=== PATIENT | female | born 1965 ===

== ENCOUNTER 2016-11-19 12:07 | Observation (INO) | payer MEDICARE ==
[2016-11-19] VITALS (7 sets, daily range): BP systolic 118–161; BP diastolic 63–91; PULSE 71–84; RESP 17–20; O2SAT 94–99
[~2016-11-19] VITALS: Ht 162.6 cm; Wt 136.2 kg
[~2016-11-19 12:07] MED LIST: LRZ.5T1 PO; PARO30TA75 PO
--- NOTE | 2016-11-19 12:21 | ED.REPORT ---
HPI-Chest Pain 40 and Over Date of Service Nov 19, 2016 ED Provider: Dr. Burk Pt is a 40 year old female with a hx of anxiety, osteoarthritis, fibromyalgia, presenting to the ED via EMS from complaining of chest pressure and palpitations onset intermittently 1 week ago. Associated symptoms include SOB and chronic sinus issues. Denies nausea or abdominal pain. She describes the sensation as a fluttering, radiating into her throat, usually lasting for around 30-60 minutes. Pt reports that the symptoms were resolved when she took Lorazepam at home. EKG from from 1103 am shows T wave inversion V1-V4 prominently. Nursing Notes Stated Complaint: CHEST PAIN Chief Complaint: Chest Pain Nursing Notes Reviewed: Yes Allergies: Coded Allergies: Gluten Flour (Verified Adverse Reaction, Severe, HEARTBURN, 11/19/16) Wheat Flour (Verified Adverse Reaction, Severe, HEARTBURN, 11/19/16) garlic (Verified Adverse Reaction, Severe, HEARTBURN, 11/19/16) Uncoded Allergies: CASINE (Adverse Reaction, Severe, HEARTBURN, 06/14/10) Scheduled Lorazepam-Expunged Drug, Do Not Renew! (Lorazepam-Expunged Drug, Do Not Renew!) 0.5 Mg Tab 0.5 MG PO PRN BID as needed Paroxetine-Expunged Drug, Do Not Renew! (Paxil-Expunged Drug, Do Not Renew!) 30 Mg Tablet 30 MG PO HS General Time Seen by MD: 12:21 Chief Complaint Chest pain Hx Obtained From: Patient Arrived By: Ambulance Sudden in Onset?: No Onset Occurred: 1 week ago Symptom Duration: Intermittent Quality: Painful, Pressure Severity: Current: Mild Severity: Maximum: Mild Recent Healthcare: No recent hospitalization, Recent doctor visit Similar Sx Previous: No Past Medical History Past Medical History Reported: pituitary brain aneurysm being monitored, anxiety, GERD, osteoarthritis, fibromyalgia Past Surgical History denies Smoking History Unknown if Ever Smoker Ambulatory Status Independent Review of Systems Respiratory: Reports: Shortness of breath Cardiovascular: Reports: Chest pain, Palpitations GI: Denies: Abdominal pain, Nausea Complete sys rev & neg: except as marked. Physical Exam Initial Vital Signs Vital Signs (First) Date Time Temp Pulse Resp B/P Pulse Ox O2 Delivery O2 Flow Rate FiO2 11/19/16 12:10 36.2 82 20 161/91 99 Nasal Cannula 2 Initial VS: Reviewed Head / Eyes: Atraumatic, Normocephalic, PERRL ENT: Mucous membranes moist, Conjunctiva normal, No scleral icterus Skin: Warm, Dry, No cyanosis Neurologic: Alert, Oriented, Nonfocal Psychiatric: Mood/affect normal, Behavior normal, Normal thought content General/Constitutional: Awake, Alert, No acute distress, Well appearing Appearance / Presentation: Positive: Obese Respiratory / Chest: Breath sounds NL, Breath sounds = bilat, No respiratory distress, No rales, No rhonchi, No wheezing, No stridor, No chest tenderness Cardiovascular: Heart rate NL, Regular rhythm, Heart sounds NL, No murmurs, Peripheral circulation NL, Pulses = bilaterally, No gross BP differential Abdomen: Soft, Non-tender, No guarding, No rebound, BS normoactive, No distention Neck: No JVD Lower Extremity / Pelvis / MS: Neurologic intact, Vascular intact, No edema Interpretation & Diagnostics Lab Results Interpretation Result Diagram: 11/19/16 1230 11/19/16 1230 Test 11/19/16 12:00 11/19/16 12:30 11/19/16 13:00 11/19/16 14:15 White Blood Count 9.9th/mm3 (3.8-10.1) Red Blood Count 4.95mil/mm3 (3.90-5.20) Hemoglobin 14.0g/dL (12.0-15.6) Hematocrit 43.9% (35.0-46.0) Mean Corpuscular Volume 88.7fL (81-100) Mean Corpuscular Hemoglobin 28.3pg (27.0-35.0) Mean Corpuscular Hemoglobin Concent 31.9% (32.0-37.0) Red Cell Distribution Width 14.0% (12.3-15.4) Platelet Count 236bil/L (150-400) Neutrophils (%) (Auto) 73.1% (40-74) Lymphocytes (%) (Auto) 19.2% (14-46) Monocytes (%) (Auto) 6.4% (4-12) Eosinophils (%) (Auto) 0.8% (0-5) Basophils (%) (Auto) 0.2% (0-3) Sodium Level 141mEq/L (134-144) Potassium Level 3.6mEq/L (3.5-5.2) Chloride Level 103mEq/L (97-108) Carbon Dioxide Level 24mmol/L (18-29) Blood Urea Nitrogen 15mg/dL (6-24) Creatinine 0.54mg/dL (0.57-1.00) Estimat Glomerular Filtration Rate 170mL/min (>59) Glucose Level 111mg/dL (60-99) Calcium Level 9.7mg/dL (8.5-10.1) Total Bilirubin 0.3mg/dL (0.0-1.2) Aspartate Amino Transf (AST/SGOT) 19U/L (0-50) Alanine Aminotransferase (ALT/SGPT) 17U/L (0-32) Alkaline Phosphatase 83U/L (25-150) Total Creatine Kinase 117U/L (21-215) Creatine Kinase MB 2.9ng/mL (0.0-5.3) Creatine Kinase MB % % (0.0-5.0) Pro-B-Type Natriuretic Peptide 90.29pg/mL (0-249) Total Protein 8.2g/dL (6.4-8.4) Albumin 4.2g/dL (3.4-5.0) Activated Partial Thromboplast Time 31.8sec (22.8-33.0) ECG Interpretation ECG Interpretation: No acute ST changes. Time: 13:35 Interpreted by: ED physician Normal ECG Interpretation: Normal rate (74), Normal sinus rhythm X-Ray Chest Interpretation Chest Xray Interpretation: IMPRESSION: No acute process. Dictated by: Selena Le M.D. on 11/19/2016 at 13:28 View: AP & lat Interpretation / Wet Read by: Interpret - Radiologist Re-Eval/Medical Decision Med Decision/Clinical Course Patient has dynamic anterior EKG changes associated with her chest symptoms, concerning for unstable angina. She will be heparinized while in the ER. Cardiology is consulted while in the ER. Patient will be admitted. Time of Eval: 13:42 Patient Status: Condition improved Re-Evaluation/Progress Note: Discussed plan for admission. Pt understands and agrees. Consultation #1: Referral / Consult Name: Tommie Kerr MD Consulted With: Hospitalist Call Returned at: 13:57 Affiliate Marketing Coordinator: Will see patient, Agrees with plan, Accepts admit Consultation #2: Referral / Consult Name: Cecelia Be MD Consulted With: Cardiology Call Returned at: 14:02 Counseled Regarding: Diagnosis, Lab results, Need for follow-up, When/why to return to ED Discharge & Departure Primary Impression: Unstable angina Disposition: ADMITTED TO HOSPITAL Discharge Condition All VS Reviewed: Yes Condition: Improved Referrals: Gretchen Lemon MD (PCP) Crit Care Except Billable Proc Time Spent: 30-74 minutes Services Performed: Patient management by me, Time spent at bedside, Reviewing test results Critical Care Notes: See MDM Scribe Attestation Portions of this note were transcribed by Meenu Naylor. I, Dr. Burk personally performed the history, physical exam and medical decision-making; I reviewed and confirmed the accuracy of the information in the transcribed note. Signed by: Hu Gomez, 11/19/2016 at 1414. copies to: Gretchen Lemon MD, Timothy S DO Nov 19, 2016 12:21 MEENU NAYLOR Nov 19, 2016 12:33
[2016-11-19] MEDS ORDERED: LidocaineVisc 2%:Antacid 1:1 10 mL Syringe PO ONE (12:35)
[2016-11-19 12:48] LABS: BASOPHILS % (AUTO) 0.2 % (0-3); EOSINOPHILS % (AUTO) 0.8 % (0-5); MONOCYTES % (AUTO) 6.4 % (4-12); Mean Corpuscular Hemoglobin 28.3 pg (27.0-35.0); Mean Corpuscular Volume 88.7 fL (81-100); NEUTROPHILS % (AUTO) 73.1 % (40-74); Platelet Count 236 bil/L (150-400)
[2016-11-19 13:23] LABS: Creatine Kinase 117 U/L (21-215); Magnesium 2.3 mg/dL (1.6-2.6)
[2016-11-19 13:28] LABS: TROPONIN T < 0.010 ug/L (0.0-0.011)
--- NOTE | 2016-11-19 13:30 | DRSVH ---
PROCEDURE: X-RAY CHEST, TWO VIEWS ([id number]) INDICATIONS: palpitations TECHNIQUE: 2 views of the chest were acquired. COMPARISON: [facility], , CHEST 2VW, 01/11/2012, 12:48. FINDINGS: Surgical changes and devices: None. Lungs and pleura: No pleural effusions or pneumothorax. Lungs are clear. Mediastinum: Mediastinal contours are normal. Heart size is normal. Bones and chest wall: No suspicious bony abnormalities. Soft tissues appear unremarkable. IMPRESSION: No acute process. Dictated by: Selena Le M.D. on 11/19/2016 at 13:28 Approved by: Selena Le M.D. on 11/19/2016 at 13:28
[2016-11-19] MEDS ORDERED: Heparin 25K Unit/500mL 0.45 NS 25,000 UNIT in IV Premix 1 EACH IV ONE (13:40)
[2016-11-19] MEDS ORDERED: Heparin 5,000 Unit/mL Inj IVPUSH ONE (13:40)
[2016-11-19] MEDS ORDERED: Alum-Mag Hydrox-Simeth 30 mL Suspension PO PRN (14:00)
[2016-11-19] MEDS: 0.9% Sodium Chloride 1,000 ML IV SCH ×2 (14:00→20:34)
[2016-11-19] MEDS ORDERED: Senna-Docusate 8.6-50 mg Tablet PO PRN (14:00)
[2016-11-19] MEDS ORDERED: Polyethylene Glycol (PEG) 17 Gm Powder PO PRN (14:00)
[2016-11-19] MEDS ORDERED: Ondansetron 2 mg/mL 2 mL Inj IVPUSH PRN (14:00)
--- NOTE | 2016-11-19 14:44 | PCM.HPMED ---
Subjective Date of Service Nov 19, 2016 Primary Provider: Admitting Physician: Tommie Kerr MD Primary Care Physician: Gretchen Lemon MD Attending Physician: Tommie Kerr MD Chief Complaint: Chest flutter History of Present Illness: Guera Cai is 51 year old obese woman with past medical history significant for panic disorder, osteoarthritis, fibromyalgia and JORGE who presented to the [facility] ED via EMS from due to "fluttering" in her chest for the last week. The patient noted this would happen intermittently for about 30 minutes at a time and she associated with GERD. This was not associated with exertion. She denies any chest pressure, chest pain, arm numbness, tingling, sharp pains to her neck or back. She denies any diaphoresis, nausea, vomiting, diarrhea or abdominal pain. She denies and shortness of breath or cough. The patient believed this to be a panic attack and took one dose of Ativan with relief. Her family was however with her and talked her to coming to urgent care to seek further care. At urgent care an EKG was performed and the patient was noted to have T wave inversion in V1-V4. On repeat EKG done at the ED no T wave inversions were noted. The patient is currently pain free. She was a former smoker and does currently work in a smoking environment. In the ED her vitals were stable. Dr. Be of cardiology was consulted and agreed to see the patient. The patient was given a full dose of aspirin and started on a heparin drip. Review of Systems: A comprehensive review of systems was conducted with the patient and found to be negative except as above in the History of Present Illness. Allergies Coded Allergies: Gluten Flour (Verified Adverse Reaction, Severe, HEARTBURN, 11/19/16) Wheat Flour (Verified Adverse Reaction, Severe, HEARTBURN, 11/19/16) garlic (Verified Adverse Reaction, Severe, HEARTBURN, 11/19/16) Uncoded Allergies: CASINE (Adverse Reaction, Severe, HEARTBURN, 06/14/10) Home Medications Lorazepam 0.5 Mg Tab 0.5 MG PO PRN BID as needed Paroxetine 30 Mg Tablet 30 MG PO HS PMH Panic disorder Fibromyalgia Osteoarthritis Restless legs JORGE Pituitary brain aneurysm being monitored (1998) Surgical History Denies Family History The patient's grandfather had an ND, although unknown at what age. No other cardiac history. Family history of diabetes. Social History Hx Alcohol Use: No Hx Substance Use: No Hx Tobacco Use: Yes Smoking Status: Former Smoker Exam Vital Signs Vital Sign - Last Date Time Temp Pulse Resp B/P Pulse Ox O2 Delivery O2 Flow Rate FiO2 11/19/16 14:25 36.7 84 17 128/84 98 Room Air 11/19/16 12:10 2 Exam General: No acute distress, obese female, appropriately interactive HEENT: Normocephalic, atraumatic. External ears without defect. Pupils equal, round, and reactive to light and accommodation. Anicteric sclerae, moist conjunctivae, and no lid lag. Oropharynx free of erythema and cobble stoning with moist mucosa. Neck: Supple with full range of motion. No jugular venous distension. No bruits. No lymphadenopathy or thyromegaly. Cardiovascular: Regular rate and rhythm with no murmurs, rubs, or gallops appreciated. Exam limited by habitus. Pulmonary: Clear to auscultation bilaterally with no crackles, wheezes, or rhonchi. Normal respiratory effort with no use of accessory muscles. Exam limited by habitus. Abdomen: Bowel tones present. Soft, nontender, nondistended. No hepatosplenomegaly or masses appreciated. Exam limited by habitus. Extremities: No clubbing, cyanosis, edema, or lymphadenopathy appreciated. Skin: Normal temperature, turgor, and texture; no rash, ulcers, or subcutaneous nodules appreciated. Neurological: Cranial nerves grossly intact. Normal muscle strength, tone, and bulk. Reflexes, coordination, and sensory function within normal limits. No known gait impairment. Psychiatric: Normal mood and affect. Alert and oriented to person, place, and time. Lab and Diagnostics Result Diagram: 11/19/16 1230 11/19/16 1230 X-Rays, CTs and MRIs X-RAY CHEST, TWO VIEWS IMPRESSION: No acute process. Dictated by: Selena Le M.D. on 11/19/2016 at 13:28 12-lead ECG NSR, LAFB, no ST changes Assessment & Plan Guera Cai is 51 year old obese woman with past medical history significant for panic disorder, osteoarthritis, fibromyalgia and JORGE who presented to the [facility] ED via EMS from due to "fluttering" in her chest for the last week. # Non-anginal chest pain with non-specific EKG changes -The patient does not meet any of the Yolanda-Sheree criteria translating to a low pre-test probability of a cardiac etiology -However the patient is female which does lead to atypical presentation -Risk factors include: obesity, smoking history, hypertension -Cardiology consulted, appreciate the time and expertise -Patient started on a heparin drip by the ED, will discontinue per discussion with Dr. Be -Serial troponin Q6 -Telemetry -EKG PRN -Fasting lipids in AM, A1C -ECHO -Given full dose ASA in the ED, will continue 81 mg ASA in AM -Stress test in AM -pain likely due to GERD,will start PPI # Panic disorder -IV Lorazepam 0.5 mg Q6 PRN # Fibromyalgia -Continue Paxil # JORGE not on CPAP -May need nocturnal O2 supplementation Obesity, BMI 51.3 CODE STATUS: FULL CODE Patient is admitted under observation status with expected length of stay less than 2 midnights due to severity of presenting symptoms, risk of adverse event, and complexity of treatment plan. Attending Statement The patient was seen and examined independently on 11/18/2016 and case discussed with Dr. Gar , I agree with the history, exam and plan as outlined in the note above. copies to: Gretchen Lemon MD, Viktoriya DO Nov 19, 2016 14:44 Tommie Kerr MD Nov 19, 2016 15:49
[2016-11-19 15:01] LABS: Magnesium 2.3 mg/dL (1.6-2.6)
[2016-11-19 15:07] LABS: TROPONIN T < 0.010 ug/L (0.0-0.011)
[2016-11-19] MEDS: Pantoprazole 20 mg ER24 Tablet PO SCH ×2 (16:13→20:34)
[2016-11-19] MEDS: Sodium Chloride LOK Flush 10 mL Syringe IVFLUSH SCH ×2 (16:19→20:36)
[2016-11-19] MEDS ORDERED: NPR500T PO (19:13)
[2016-11-19] MEDS ORDERED: PARO20TA5 PO (19:15)
[2016-11-19] MEDS ORDERED: LORA0.5T PO (19:15)
[2016-11-19] MEDS ORDERED: B COMPLEX PO (19:20)
[2016-11-19] MEDS ORDERED: [UNRECOGNIZED DRUG - OTHER] PO (19:20)
[2016-11-19] MEDS ORDERED: ASCO100089 PO (19:20)
[2016-11-19] MEDS ORDERED: CHOL200025 PO (19:20)
[2016-11-19] MEDS ORDERED: PARoxetine 20 mg Tablet PO SCH (21:00)
[2016-11-20 00:28] VITALS: BP 107/65; PULSE 70; RESP 20; O2SAT 95
[2016-11-20 05:15] VITALS: BP 126/72; PULSE 61; RESP 18; O2SAT 96
[2016-11-20 06:32] LABS: BASOPHILS % (AUTO) 0.3 % (0-3); EOSINOPHILS % (AUTO) 1.4 % (0-5); MONOCYTES % (AUTO) 5.7 % (4-12); Mean Corpuscular Hemoglobin 28.2 pg (27.0-35.0); Mean Corpuscular Volume 89.1 fL (81-100); NEUTROPHILS % (AUTO) 63.8 % (40-74); Platelet Count 222 bil/L (150-400)
[2016-11-20 07:42] VITALS: PULSE 90
[2016-11-20] MEDS: Sodium Chloride LOK Flush 10 mL Syringe IVFLUSH SCH (08:30)
[2016-11-20 10:17] VITALS: BP 139/80; PULSE 72; RESP 18; O2SAT 96
[2016-11-20] MEDS: Pantoprazole 20 mg ER24 Tablet PO SCH (10:25)
--- NOTE | 2016-11-20 11:49 | DRSVH ---
PROCEDURE: 1 DAY TREADMILL STRESS TEST Rest and exercise myocardial perfusion SPECT with gated imaging and ejection fraction RADIOPHARMACEUTICAL: 16.4 mCi Tc-99m tetrafosmin IV at rest and 31.1 mCi Tc-99m tetrafosmin IV at pea k exercise. [id number] was performed. INDICATIONS: 51 year-old woman with chest pain and EKG changes. TECHNIQUE: Radiopharmaceutical was injected at peak stress test, and also at rest. SPECT images wer e obtained. SPECT myocardial perfusion images were displayed in short axis, horizontal long axis, an d vertical long axis views. Gated images were reviewed using [email or web address] software. COMPARISON: [facility], [place], MYOCARD PERF SPECT MULT, MIBI, 06/05/2013, 9:47. CARDIAC STRESS: A standard Krish treadmill exercise tolerance test was performed by the patient under the supervision of an attending staff. The patient exercised for 6 minutes and 22 seconds; functional aerobic impai rment (XENIA) is +20 %. Hemodynamic data: There is normal blood pressure and heart rate response to exercise stress. Patien t achieved 86% of maximum predicted heart rate at peak exercise. Symptoms: Patient denied chest pain during exercise. EKG: No diagnostic EKG changes of ischemia; no ectopy. FINDINGS: Raw data: There is good myocardial labeling by radiotracer. No significant motion artifacts. Left ventricle function: Gated images demonstrate normal left ventricle wall thickening. No segment al wall motion abnormality. No transient ischemic dilation. The left ventricle resting end-diastoli c volume is normal. Left ventricle stress ejection fraction is greater than 70%; normal values are a darshana 45%. Myocardial perfusion: There is normal distribution of activity in the left and right ventricular kely cardium. Mild, fixed decreased activity in the anterior wall is consistent with diaphragmatic attenua tion artifact. Comparison to prior examinations: Compared to the last examination on 06/06/2013, there is no signifi cant change. IMPRESSION: 1. Normal myocardial perfusion images. 2. Normal left ventricular volume and systolic function. 3. Reduced exercise capacity. No chest pain or diagnostic EKG changes for ischemia. PQRS ATTESTATIONS: Measure 322 - Is this imaging test primarily performed on a low-risk surgery patient for preoperative evaluation within 30 days preceding their low-risk non-cardiac surgery? Low-risk surgery is defined as cardiac or myocardial infarction less than 1%, including (but not limited to) endoscopic pr ocedures, superficial procedures, cataract surgery, and excisional breast surgery: Answer: No Measure 323 - Is this imaging test performed primarily for the monitoring of an asymptomatic patient who had percutaneous coronary intervention on the visit date or within 2 years of the visit date? An swer: No Measure 324 - Is this imaging test performed primarily for the initial detection and risk assessment on an asymptomatic, low coronary heart disease patient? Low CHD risk definition = clinicians should consider the maximum number of available patient factors used to estimate risk based on Lincoln (A TP III criteria), typically age, gender, diabetes, smoking status, and use of blood pressure medicati on, and integrate age appropriate estimates for missing elements, such as LDL or standard blood press ure. Answer: No Dictated by: Barney White M.D. on 11/20/2016 at 11:37 Approved by: Barney White M.D. on 11/20/2016 at 11:48
--- NOTE | 2016-11-20 12:18 | DRSVH ---
[facility] [address] [place] [address] Echocardiogram Report Name: JARED CHANG Vin e: 11/20/2016Height: 64 in Hospital Exam Location: [facility] Weight: 300 lb Gender: Female BSA: 2.3 m2 : 1965 Age: 51 yrs BP: 126/72 mmHg Reason For Study: CHEST PAIN Ordering Physician: HOSPITALIST [facility] Performed By: Wilber Wilburn Referring Physician: Dr Gretchen Lemon Interpretation Summary The ejection fraction is estimated to be 60-65%. There are no focal wall motion abnormalities. There is no significant valvular heart disease. Procedure: A two-dimensional transthoracic echocardiogram with color flow and Doppler was performed. The study quality was technically adequate. There is no prior echocardiogram noted for this patient. The subcostal views were not obtained due to body habitus. The patient was in normal sinus rhythm during the exam. The patient had occasional PVCs during the exam. Left Ventricle: The left ventricle is normal in size. There is normal left ventricular wall thickness. The ejection fraction is estimated to be 60-65%. There are no focal wall motion abnormalities. Assessment of diastolic parameters suggests a pseudonormalization pattern, consistent with elevated filling pressures. Right Ventricle: The right ventricle is normal in size and function. Atria: Both atria are normal in size. The interatrial septum is intact with no evidence for an atrial septal defect. Mitral Valve: The mitral valve is normal in structure and function. There is trace mitral regurgitation. Aortic Valve: The aortic valve is not well visualized. The aortic valve opens well. There is no aortic valve stenosis. No aortic regurgitation is present. Tricuspid Valve: The tricuspid valve is normal in structure and function. No tricuspid regurgitation. Pulmonary artery pressures cannot be estimated because of the lack of a measurable TR jet velocity. Pulmonic Valve: The pulmonic valve is not well seen, but is grossly normal. There is trace pulmonic regurgitation. Great Vessels: The aortic root is normal size. The ascending aorta is mildly enlarged. The pulmonary artery is normal size. The inferior vena cava was not visualized. Pericardium/ Pleura There is no pericardial effusion. There is no pleural effusion. MMode/2D Measurements & Calculations LVIDd: 5.2 cm LA dimension: 3.6 cm RA long axis LVOT diam: 2.1 cm LVIDs: 2.7 cm Ao root diam FS: 47.6 % LA A2 area: 21.3 cm RA area EPSS: 0.75 cm LA A4 area: 21.6 cm Aortic Jxn: 3.0 cm IVSd: 1.1 cm LA length (vol) : 18.1 cm asc Aorta Diam LVPWd: 0.99 cm RA vol LA vol: 70.7 ml : 58.2 ml Ao Arch Diam (Prox LA vol index RA Trans): 3.0 cm : 25.0 mm2 : 30.4 ml/m2 LV buckner. diameter/BSA LV sys. diameter/BSA (cm/m^2): 2.2 (cm/m^2): 1.2 Doppler Measurements & Calculations Ao V2 max MV E max eddie MV E/A: 1.2 PA V2 max : 173.6 cm/sec : 91.8 cm/sec Med Peak E' Eddie : 95.4 cm/sec Ao max P.1 mmHg MV A max eddie PA mean PG Ao mean P.8 mmHg : 76.4 cm/sec E/E' med: 11.3 LVOT Max Eddie Lat Peak E' Eddie PA Accel Time : 95.3 cm/sec : 0.05 sec E/E' lat: 7.9 KENNY(I,D): 2.1 cm E/e' average sev ratio: 0.59 Pulm A Revs Dur MV A dur : 0.10 sec MV dec time: 0.16 secAo V2 mean LV V1 max PG PA V2 mean : 123.4 cm/sec : 67.2 cm/sec Ao V2 VTI: 39.7 cm LV V1 VTI PA pr(Accel) : 23.6 cm : 54.0 mmHg KENNY(V,D): 2.0 cm2 KENNY indexed to BSA Pulm Shukri Bartons Dur - MV (cm^2/m^2): 0.92 A Dur: 0.00 msec Electronically signed by: Juan Daniel Hanson on Reading Physician:11/20/2016 12:17 PM
--- NOTE | 2016-11-20 13:11 | PCM.DIMED ---
Discharge Instructions Date of Service Nov 20, 2016 Dates of Hospitalization Nov 19, 2016 at 14:21 Discharge Diagnosis Discharge Diagnosis Chest neck discomfort, fluttering, cause unknown Negative cardiac work up Diet Low fat, Low Sodium Activity Limited until seen by PCP Call your provider Chest pain Patient Instructions Follow-up plan Follow up with your primary care doctor in the next few days. I will send records to her. Tatiana Shukla MD Nov 20, 2016 13:11
[2016-11-20] MEDS ORDERED: PANT40TA2 PO (13:13)
[2016-11-20 13:32] VITALS: BP 137/75; PULSE 64; RESP 18; O2SAT 96
--- NOTE | 2016-11-20 15:32 | DIS ---
[address] [address] DISCHARGE SUMMARY PATIENT: JARED CHANG : 1965 MR#: [id number] ADMIT: 11/19/2016 JOB ID: [id number] DIS: 11/20/2016 PRIMARY CARE PROVIDER: Gretchen Lemon MD. FINAL DIAGNOSES: 1. Chest discomfort, throat discomfort. Etiology unclear. 2. Negative cardiac workup. 3. Panic disorder. Present on admission. Stable. 4. Fibromyalgia. Present on admission. Stable. 5. Obstructive sleep apnea. 6. Morbid obesity. Body mass index 51.3. Present on admission. Stable. CONSULTANTS: None. OPERATIONS: None. BRIEF HISTORY: A 51-year-old female who has had a few weeks of a fullness or discomfort in her throat and chest and then some fluttering in her chest. Very nondescript. Denies pain per se. There was some question when she was evaluated in the urgent care that there may be some T-wave inversions in leads V1 through V3, but that was repeated here and those were not noted. She has no known cardiac disease and is a former smoker. The patient's electrocardiogram here was unrevealing. Shows some nonspecific T-waves. Her troponins were measured and they were negative x3. The rest of her lab work was unrevealing. Her TSH was normal. Electrolytes were stable. Kidney function was normal. She had no evidence of anemia. Patient had a chest x-ray which was unrevealing and also an echocardiogram which was read as normal. The patient underwent stress myocardial perfusion scan. I got a call from our radiologist and this is a low risk scan. There was normal left ventricular volume and systolic function but reduced exercise capacity. I do not see any evidence of a cardiac etiology for patient's discomfort. Since she has been put on a PPI, these symptoms have gotten much better. I suspect this may be related to reflux disease in the past. PLAN: Will go home on her normal medications but I am going to put her on Protonix 40 b.i.d. She will follow up with Dr. Lemon in the next couple days, and at that time, they can make further decisions. If symptoms do not resolve, then we may consider GI consult, etc. Total discharge time 35 minutes. MTDD
== END 2016-11-20 13:44 | disposition home or self-care (01) ==
LOC: SED 12:07 → MPC 14:21
PROVIDERS: ADMIT Internal Medicine; ATTEND Internal Medicine
DX: R07.89 Other chest pain (principal); R07.0 Pain in throat; F41.0 Panic disorder [episodic paroxysmal anxiety]; M79.7 Fibromyalgia; G47.33 Obstructive sleep apnea (adult) (pediatric); E66.01 Morbid (severe) obesity due to excess calories; Z68.43 Body mass index [BMI] 50.0-59.9, adult; G25.81 Restless legs syndrome
CPT/HCPCS: 36415; 71020; 78452; 80048; 80053; 80061; 82550; 82553; 83036; 83735; 83880; 84443; 84484; 85025; 85730; 93005; 93017; 96374; 99291; A9502; C8929; G0378; J1644; J7030